=== PATIENT | female | born 1945 | race Caucasian/White ===

== ENCOUNTER 2020-12-02 11:27 | Outpatient (REF) | payer MEDICARE, SELFPAY ==
--- NOTE | ~2020-12-02 | US_ITS ---
EXAMINATION: US VENOUS ULTRASOUND WITH DOPPLER LOWER EXTREMITY, RIGHT CLINICAL INFORMATION: Swelling COMPARISON: Previous exam December 2019 TECHNIQUE: Ultrasound of the deep veins is performed from the hip to the calf with compression sonography and color and pulse Doppler assessment. Spectral analysis with color-flow imaging is performed. FINDINGS: There is normal venous compression and respiratory variation and augmented flow. The visualized common femoral vein, superficial femoral vein, profunda femoral vein, popliteal vein, and the trifurcation region shows no evidence of deep venous thrombosis. There is no significant popliteal fossa cyst. US/US venous duplex LE RT IMPRESSION: No DVT demonstrated in the right lower extremity.
== END 2020-12-02 11:28 | disposition home or self-care (01) ==
LOC: HO.HMGCX 11:27
PROVIDERS: Visit Provider Hospitalist
DX: R60.0 Localized edema (principal)
CPT/HCPCS: 93971

== ENCOUNTER 2023-02-22 10:03 | Outpatient (AMB) | payer MEDICARE, SELFPAY ==
--- NOTE | 2023-02-22 10:13 | MHC.PC.OV ---
Vital Signs 02/22/23 10:16 Height 4 ft 11 in Weight 142 lb BMI 28.7 BP 132/80 Blood Pressure Location Lt brachial Position Sitting Pulse 73 Pulse Source Pulse Oximeter Pulse Oximetry (%) 97 Oxygen Delivery Method Room Air Intake Visit Reasons: Abdominal pain Intake Note: Pt is here today as a New Patient to [facility] and c/o epigastric pain Allergies penicillin V Adverse Reaction (Unknown, Verified 02/22/23 10:50) Unknown amoxicillin Adverse Reaction (Verified 02/22/23 10:50) Eye Swelling Medication List - Last Reconciled 02/22/23 by Laura Gamboa MD alum-mag hydroxide-simeth 200-200-20 mg/5 mL (Antacid Liquid) 5 mL PO Q3H PRN atenolol 50 mg PO BID atorvastatin 20 mg PO DAILY bupropion HCl 200 mg PO QAM calcium citrate 200 mg PO DAILY docusate sodium (Stool Softener) 100 mg PO DAILY esomeprazole magnesium mg PO lactobacillus combination no.9 (Adult 50 Plus Probiotic) 4,000 mmu cells PO DAILY lorazepam 0.5 mg PO TID nifedipine ER 30 mg PO DAILY tizanidine 2 mg PO TID triamcinolone acetonide 0.025% appl topical valsartan 320 mg PO DAILY Tobacco use date assessed: 02/22/23 Fall risk assessment: 1 Fall in past year Last assessed Fall Risk: 02/22/23 Dental Screening Dental Screen Date: 02/22/23 Did you have a dental visit in the last 12 months?: No Was dental information given to patient?: Patient has dentist HPI HPI Comments History of Present Illness Details 78-year-old lady new to practice, here today complaining of sharp epigastric pain, nonradiating, accompanied by bloating and occasional nausea, which has been present now for the last several days. Denies any change in her bowel habits, blood in the stool, no black stools, denies any urinary symptoms. She has chronic GERD, currently on esomeprazole which does not help with above complaint PFSH Medical History (Updated 02/22/23 @ 11:24 by Laura Gamboa MD) Acute epigastric pain Chronic GERD Essential hypertension Generalized anxiety disorder Hyperlipidemia Impaired fasting glucose Migraine Surgical History (Updated 02/22/23 @ 11:26 by Laura Gamboa MD) Hx of cataract surgery Hx of section Social History Housing: House Patient Tobacco Use Status: Never used Tobacco e-Cigarette/Vaping Use: Never Used service: No Current occupational status: retired Cognitive needs: No Hearing needs: No Vision needs: No Questionnaire PHQ-9 Over the last 2 weeks, how often have you been bothered by any of the following problems? 1. Little interest or pleasure in doing things: not at all 2. Feeling down, depressed, or hopeless: not at all 3. Trouble falling or staying asleep, or sleeping too much: not at all 4. Feeling tired or having little energy: not at all 5. Poor appetite or overeating: not at all 6. Feeling bad about yourself - or that you are a failure or have let yourself or your family down: not at all 7. Trouble concentrating on things, such as reading the newspaper or watching television: not at all 8. Moving or speaking so slowly that other people could have noticed. Or the opposite - being so fidgety or restless that you have been moving around a lot more than usual: not at all 9. Thoughts that you would be better off or of hurting yourself in some way: not at all Total score: 0 Depression Screening Interpretation: Negative 21497 - PHQ-9 Billing: Yes Source: Developed by Drs. Sang Gilman, Grazyna Arellano, Ramesh Moura and colleagues, with an educational nhan from [employer]. Thrive Questionnaire Date Thrive assessed: 02/22/23 I am a: Patient What is your living situation today?: I have a steady place to live Within the past 12 months, did the food you bought not last and you didn't have the money to get more?: Never true Within the past 12 months, did you worry whether your food would run out before you got money to buy more?: Never true Do you have trouble paying for medicines?: No Do you have trouble getting transportation to medical appointments?: No Do you have trouble paying your heating and electricity bill?: No Do you have trouble taking care of your child, family member or friend?: No Do you have trouble with day-to-day activities such as bathing, preparing meals, shopping, managing finances, etc.?: No Are you currently unemployed and looking for a job?: No Are you interested in more education?: No AUDIT C Alcohol Use Questionnaire (AUDIT-C) 1. How often do you have a drink containing alcohol?: Never Total Score: 0 DEVON-7 AMB Questionnaire DEVON-7 Date DEVON - 7 assessed: 02/22/23 Feeling nervous, anxious, or on edge: 0 = Not at all Not being able to stop or control worryin = Not at all Worrying too much about different things: 0 = Not at all Trouble relaxin = Not at all Being so restless that it is hard to sit still: 0 = Not at all Becoming easily annoyed or irritable: 0 = Not at all Feeling afraid as if something awful might happen: 0 = Not at all Total DEVON-7 score (0-4 normal; 5-9 mild; 10-14 moderate; 15-21 severe): 0 Source: Developed by Drs. Sang Gilman, Grazyna Arellano, Ramesh Moura and colleagues, with an educational nhan from [employer]. DEVON-7 Assessment Billing DEVON-7 Assessment Tool: DEVON-7 Assessment 86647 Review of Systems Const Denies fatigue, Denies fever(s), Denies headache(s) and Denies weakness ENT Denies dizziness, Denies headache(s), Denies nasal congestion and Denies nasal discharge Card Denies chest pain, Denies lightheadedness, Denies palpitations and Denies dyspnea Resp Denies chest congestion, Denies cough, Denies dyspnea and Denies wheezing GI Reports as per HPI Denies hematuria, Denies urinary frequency, Denies dysuria and Denies urinary urgency Musc Reports no additional complaints Skin/Breast Denies lesions and Denies rash Neuro Denies dizziness, Denies headache(s) and Denies weakness Endo Denies fatigue, Denies polydipsia, Denies polyuria and Denies palpitations Simon/Lymph Reports no additional complaints Aller/Immun Denies seasonal rhinorrhea and Denies wheezing Physical exam (Primary Care) Vital Signs: Last Vital Signs Pulse 73 02/22/23 10:16 BP 132/80 02/22/23 10:16 Pulse Ox 97 02/22/23 10:16 Oxygen Delivery Method Room Air 09/01/23 10:16 BMI result Body Mass Index 28.7 Tobacco/Smoking Status: Tobacco use Status Tobacco use date assessed 02/22/23 02/22/23 10:35 Patient Tobacco Use Status Never used Tobacco 02/22/23 10:35 e-Cigarette/Vaping Use Never Used 02/22/23 10:35 PHQ-9: PHQ-9 Score PHQ-9: Total score 0 02/22/23 11:28 Depression Screening Interpretation: Negative Thrive Assessment: Date of Thrive Assessment Date Thrive assessed 02/22/23 02/22/23 10:35 Const Orientation/consciousness: patient oriented x3 HENMT Head: Yes normocephalic and Yes atraumatic Ears: external ears normal, TM's normal bilaterally and EAC's normal General nose exam: Normal external nose present Face and sinus: Yes face symmetric Mouth: Normal oral and palatal mucosa present, oropharynx normal and moist mucous membranes Eyes General: appearance normal, both eyes and all related structures Neck Neck: Yes full ROM, Yes no lymphadenopathy and Yes supple Thyroid: Thyroid normal Resp Effort & Inspection: normal respiratory effort and able to speak in complete sentences Auscultation: clear to auscultation bilaterally Cardio Rate: regular rate Rhythm: regular rhythm Heart sounds: S1 normal heart sound present and S2 normal heart sound present Bruits: no abdominal aortic bruits GI Palpation (GI): No Abdominal aortic bruit present, Soft to palpation and Tenderness to palpation present (GI) (Slight slight tenderness over epigastric area, no rebound or guarding) Aquino's sign negative Auscultation: normal bowel sounds General: Yes no CVA tenderness Back/Spine/Pelvis Back: no CVA tenderness and No back tenderness Skin General skin exam: no rashes or lesions noted Neuro General: patient oriented x3, moves all extremities, no focal motor deficits and CN's II-XI intact bilaterally Extrem General: Yes normal to inspection, Yes full ROM, Yes no joint enlargement, Yes no clubbing, cyanosis or edema, Yes no calf tenderness and Yes normal gait Psych Appearance: grossly normal and well kempt Mental Status: mental status grossly normal Speech and movement: Normal speech and movement present Affect: normal affect Attitude: cooperative Thought process: Normal thought process present Assessment and Plan Assessment & Plan (1) Acute epigastric pain: Code(s): R10.13 - Epigastric pain Plan: Ordered stat ultrasound of abdomen and of aorta, CBC with differential and comprehensive metabolic panel ordered. GI consult obtained (2) Chronic GERD: Code(s): K21.9 - Gastro-esophageal reflux disease without esophagitis Plan: Currently on esomeprazole (3) Essential hypertension: Comment: ff'd by Dr Feliz - [facility] cardiology Code(s): I10 - Essential (primary) hypertension Plan: Blood pressure at goal of less than 130/80. Continue with current medication. Reinforced importance of following a low sodium diet, getting regular exercise, and lowering stress levels. Orders: Orders US abdomen complete 02/22/23 R10.13 - Epigastric pain US aorta 02/22/23 R10.13 - Epigastric pain Complete Blood Count Auto Diff 02/22/23 K21.9 - Gastro-esophageal reflux disease without esophagitis, R10.13 - Epigastric pain Comprehensive Met. Panel 02/22/23 I10 - Essential (primary) hypertension, K21.9 - Gastro-esophageal reflux disease without esophagitis, R10.13 - Epigastric pain Referrals Gastroenterology Referral K21.9 - Gastro-esophageal reflux disease without esophagitis Coding Level of Care Code New Pt Level 3 (63366) Diagnoses Acute epigastric pain R10.13 Chronic GERD K21.9 Essential hypertension I10 Additional Codes DEVON-7 Assessment Billing - DEVON-7 Assessment Tool: DEVON-7 Assessment 97651 ([id number])
[2023-02-22 10:16] VITALS: BP 132/80; PULSE 73; O2SAT 97; BMI 28.7
== END 2023-02-22 12:09 | disposition home or self-care (01) ==
PROVIDERS: PCP Internal Medicine; Visit Provider Internal Medicine
DX: R10.13 Epigastric pain (principal); K21.9 Gastro-esophageal reflux disease without esophagitis; I10 Essential (primary) hypertension
CPT/HCPCS: 99203; 99213

== ENCOUNTER 2023-02-22 12:01 | Outpatient (REF) | payer MEDICARE, SELFPAY ==
--- NOTE | ~2023-02-22 | US_ITS ---
EXAMINATION: US ABDOMEN COMPLETE CLINICAL INFORMATION: Epigastric pain. COMPARISON: CT abdomen and pelvis from 01/11/2014 TECHNIQUE: Real-time imaging of the abdominal viscera. FINDINGS: PANCREAS: Normal. ABDOMINAL AORTA: The proximal, mid, and distal segments are normal in caliber. INFERIOR VENA CAVA: Visualized portions are normal. LIVER: Normal. The liver is normal in size. The liver contour is normal. Parenchymal echogenicity is normal. No focal hepatic lesion. There is no intrahepatic biliary duct dilatation seen. GALLBLADDER: Intraluminal gallbladder calculi without wall thickening or pericholecystic fluid. Sonographic Aquino sign is negative. COMMON BILE DUCT: Normal in caliber measuring 0.4 cm in diameter. RIGHT KIDNEY: Normal. No hydronephrosis. No renal calculi or focal parenchymal lesions. The kidney measures 9.0 cm in maximum dimension. LEFT KIDNEY: Normal. No hydronephrosis. No renal calculi or focal parenchymal lesions. The kidney measures 9.2 cm in maximum dimension. SPLEEN: Normal. The spleen measures 6.9 cm in maximum dimension. FREE FLUID: None. US/US abdomen complete IMPRESSION: Cholelithiasis without sonographic evidence of acute cholecystitis.
[2023-02-22 13:15] LABS: MANUAL DIFF FLAG NO
[2023-02-22 13:25] LABS: Basophils Percent Auto 0.4 % (0-2); Eosinophils Percent Auto 0.5 % (0-4); Hematocrit 40.1 % (37.0-47.0); Hemoglobin 13.2 g/dl (12.0-16.0); Imm Gran Abs Auto 0.03 X10*3/uL (0.00-0.03); Imm Gran Pct Auto 0.4 % (0.0-0.4); Lymphocytes Absolute Auto 2.3 X10*3/uL (1.2-4.9); Mean Corpuscular HGB Conc 32.9 g/dl (31.0-35.0); Mean Corpuscular Hemoglobin 31.1 pg (27.0-33.0); Mean Corpuscular Volume 94.4 fL (80.0-98.0); Mean Platelet Volume 9.7 fL (9.4-12.3); Monocytes Absolute Auto 0.6 X10*3/uL (0.1-1.2); Monocytes Percent Auto 7.8 % (2-11); Neutrophils Absolute Auto 5.1 x10*3/uL (2.0-8.3); Neutrophils Percent Auto 62.9 % (45-73); Platelet Count 244 X10*3/uL (160-400); Red Blood Count 4.25 X10*6/uL (4.20-5.50); Red Cell Distribution Width 12.8 % (11.0-16.0)
[2023-02-22 13:55] LABS: Alanine Aminotransferase 11 U/L (0-31); Albumin Level 4.2 g/dL (3.5-5.0); Alkaline Phosphatase 84 U/L (39-117); Anion Gap 18 (12-20); Aspartate Amino Transferase 15 U/L (5-31); Bilirubin Total 0.4 mg/dL (0.0-1.0); Blood Urea Nitrogen 13 mg/dL (9-16); Calcium 9.9 mg/dL (8.4-10.2); Carbon Dioxide 22 mmol/L (22-29); Chloride 100 mmol/L (96-108); Estimated Glomerular Filt Rate > 60; Glucose Random 149 mg/dL (60-115); Potassium 4.6 mmol/L (3.3-5.1); Sodium 135 mmol/L (135-145); Total Protein 7.3 g/dL (6.5-8.0)
== END 2023-02-22 12:02 | disposition home or self-care (01) ==
LOC: HO.US 12:01
PROVIDERS: PCP Internal Medicine; Visit Provider Internal Medicine
DX: R10.13 Epigastric pain (principal); K21.9 Gastro-esophageal reflux disease without esophagitis; I10 Essential (primary) hypertension
CPT/HCPCS: 36415; 76700; 80053; 85025

== ENCOUNTER 2023-08-30 13:30 | Outpatient (REF) | payer MEDICARE, SELFPAY | END 2023-08-30 13:31 | disposition home or self-care (01) | LOC: HO.HMGCLNP 13:30 | PROVIDERS: PCP Internal Medicine; Visit Provider Internal Medicine | DX: R19.5 Other fecal abnormalities (principal) | CPT/HCPCS: 87177; 87209 ==

== ENCOUNTER 2025-01-15 15:32 | Outpatient (AMB) | payer MEDICARE, SELFPAY ==
--- OUTSIDE RECORDS SUMMARY | 2025-01-15 15:34 | XMS_ITS | Clinical Summary ---
Author Organization Formerly [facility] Address [address] [place] [address] Care Team Providers Care Entertainment Centre Manager Name Role Phone Unavailable Primary Care Provider Unavailabl e Immunizations Immunization Administration Dates Next Due Covid-19 MRNA Vaccine - Pfizer 12+ (Purple Cap) 08/02/2020,07/12/2020 Social History Tobacco Use Types Packs/Day Years Used Date Smoking Tobacco: Never Assessed Comments Unknown Sex and Gender Information Value Date Recorded Sex Assigned at Not on file Legal Sex Female 6:08 PM EST Gender Identity Not on file Sexual Orientation Not on file Plan of Treatment Health Maintenance Due Date Last Done Comments DTaP/Tdap/Td Vaccines (1 - Tdap) 01/18/1963 Pneumococcal Vaccines 50+ (1 of 1 - PCV) 01/18/1994 Zoster (Shingles) Vaccine (1 of 2) 01/18/1994 DXA Bone Density (Females,Ages 65 and older) 01/18/2009 RSV Vaccine 60 years and older and Patients (1 - 1-dose 75+ series) 01/18/2019 COVID-19 Vaccine (3 - 2023-2 5 season) 2024 08/02/2020, 07/12/2020 Influenza Vaccine 01/22/2025 03/30/2020, 03/05/2019, 02/27/2018 Hepatitis B Vaccines Aged Out No long er eligible based on patient's age to complete this topic Insurance MEDICARE PART A & B
--- OUTSIDE RECORDS SUMMARY | 2025-01-15 15:34 | XMS_ITS | Patient Health Record ---
Author Organization [facility] Address [address] [place] [address] Care Team Providers Care Clock Repair Technician Name Role Phone Sarah(inactive) Alex BRYANT Primary Care Provider U Sang Blake [phone] Allergies Allergen (clinical drug ingredient) Drug/Non Drug Allergy documented on EMR Reaction Allergy Type Onset Date Status lansoprazole Prevacid Unknown Drug Allergy Acti ve Reason For Referral No Information Medications Medication SIG (Take, Route, Frequency, Duration) Notes Start Date End Date Status hydroCHLOROthiazide 25mg Active Klor-Con 10 10meq Ac tive Simvastatin 40mg Act fiorella LORazepam 0.5mg Acti ve NexIUM 40mg 06/24/2024 06/24/2024 Active Diovan 320mg Active buPROPion HCl ER (SR) 150mg Active MoviPrep 100 GM as directed Orally O ne time only for 1 dose 10/30/2011 Active dilTIAZem HCl 180mg Active Problems Problem Type SNOMED Code ICD Code Onset Dates Problem Status W/U Status Risk Notes Problem Esophageal reflux (863768681) Esophageal reflux (530.81) Active confirmed Problem Right upper quadrant pain (406382117) Abdominal pain, right upper quadrant (789.01) Active confirmed Problem History of polyp of colon (situation) (665537699) Personal history of colonic polyps (V12.72) Active confirmed Problem Screening for malignant neoplasm of colon (930668243) Special screening for malignant neoplasms, colon (V76.51) Active confirmed Plan Of Treatment Future Test Test Name Order Date COLONOSCOPY 10/30/2011 Insurance Providers Payer Name Payer Address Payer Phone Subscriber Number Group Number Insured Name Patient Relationship to Insured Coverage Start Date Coverage End Date MEDICARE OF [place] [address] [place] [address] [phone] [id number] VIDADAVID Self - patient is the insured MEDEX ATTN CLAIMS [address] [place] [address] [phone] [id number] DAVID MCPHERSON Self - patient is the insured Medical (General) History Medical History History ICD Code GERD Colon polyps HTN Hyperlipidemia Depression Denies PR,DM,CVA,Lung disease,renal dise ase Surgical History Surgery Date(Month/Year)
--- OUTSIDE RECORDS SUMMARY | 2025-01-15 15:34 | XMS_ITS | Clinical Summary ---
Author Organization [facility] Address [address] [place] [address] Care Team Providers Care Insurance Plan Specialist Name Role Phone JoyceAnnath Leigh IBRAHIM Primary Care Provider [phone] Allergies Active Allergy Reactions Criticality Noted Date Comments Azithromycin Other (See Comments) Medium 09/25/2019 Medications Medication Sig Dispensed Refills Start Date End Date Status buPROPion (WELLBUTRIN SR) 200 MG 12 hr tablet Take 200 mg by mouth. 0 Active [facility] VITAMIN B12 1000 MCG tablet TAKE 1 TABLET DAILY ORALLY 90 DAYS 1 08/23/2017 Active tiZANidine (ZANAFLEX) 2 MG tablet Take 2 mg by mouth. 0 01/09/2017 Active LORazepam (ATIVAN) 0.5 MG tablet Take 0.5 mg by mouth. 0 Active erythromycin (ROMYCIN) ophthalmic ointment Apply to eye. 0 Active Dextran 70-Hypromellose (ARTIFICIAL TEARS) 0.1-0.3 % SOLN 1 drop. 0 11/22/2017 Active Flaxseed, Linseed, (FLAX SEED OIL PO) Take by mouth 2 (two) times a day. 0 Active Calcium Carbonate-Vitamin D (CALTRATE 600+D PO) Take by mouth. 0 A ctive ibuprofen (ADVIL,MOTRIN) 400 MG tablet TAKE 1 TABLET BY MOUTH THREE TIMES A DAY WITH FOOD OR MILK NEEDED 0 02/13/2019 Active NEXIUM 40 MG capsule Take 1 capsule (40 mg total) by mouth 2 (two) times a day. 180 capsule 3 05/02/2020 Active atorvastatin (LIPITOR) tablet 20 mg Take 1 tablet (20 mg total) by mouth daily. 90 tablet 3 05/02/2020 Active NIFEdipine ER (ADALAT CC) 30 MG 24 hr tablet Take 1 tablet (30 mg total) by mouth daily. 90 tablet 3 05/02/2020 Active atenolol (TENORMIN) tablet 50 mg Take 1 tablet (50 mg total) by mouth 2 (two) times a day. 180 tablet 2 05/02/2020 Active metoclopramide (REGLAN) tablet 10 mgIndications:Gastro esophageal reflux disease Take 1 tablet (10 mg total) by mouth daily. 30 tablet 1 05/02/2020 Active ciclopirox (LOPROX) 0.77 % cream APPLY TO AFFECTED AREA TWICE A DAY 0 03/28/2020 Active DIOVAN 320 MG tabletIndications:Es sential hypertension Take 1 tablet (320 mg total) by mouth daily. 90 tablet 3 08/08/2020 Active losartan (COZAAR) 100 MG tablet Take 1 tablet (100 mg total) by mouth daily. 90 tablet 1 08/08/2020 Active mupirocin (BACTROBAN) 2 % ointment APPLY TO AFFECTED AREA 3 TIMES A DAY 22 g 1 12/16/2020 Active Active Problems Problem Noted Date Diagnosed Date Chronic kidney disease 07/17/2019 Hyponatremia 07/17/2019 Pure hypercholesterolemia 06/05/2018 IFG (impaired fasting glucose) 04/15/2018 SI (sacroiliac) joint dysfunction 02/11/2018 Anxiety GERD (gastroesophageal reflux disease) Hypertension Immunizations Name Administration Dates Next Due Influenza Trivalent (Fluzone High Dose) 0.7 mL (65yrs &>) 03/30/2020,03/05/2019,02/27/2018 Pneumococcal Conjugate PCV13 02/27/2018 Family History Relation Name Status Comments Maternal Grandfather Maternal Grandmother Paternal Grandfather Paternal Grandmother Social History Tobacco Use Types Packs/Day Years Used Date Smoking Tobacco: Never Smokeless Tobacco: Never Alcohol Use Standard Drinks/Week Comments No 0 (1 standard drink = 0.6 oz pur e alcohol) Sex and Gender Information Value Date Recorded Sex Assigned at Female 07/01/2018 11:31 AM EST Gender Identity Female 07/01/2018 11:31 AM EST Sexual Orientation Straight 07/01/2018 11 :31 AM EST Last Filed Vital Signs Vital Sign Reading Time Taken Comments Blood Pressure 144/80 05/31/2020 2:24 PM EST Pulse 73 05/31/2020 2:24 PM EST Temperature 35.9 C (96.6 F) 05/31/2020 2:24 PM EST Respiratory Rate 14 05/31/2020 2:24 PM EST Oxygen Saturation 97% 05/31/2020 2:24 PM EST Inhaled Oxygen Concentration - - Weight 65.2 kg (143 lb 11.2 oz) 05/31/2020 2:24 PM EST Height 144.8 cm (4' 9 ) 05/31/2020 2:24 PM EST Body Mass Index 31.1 05/31/2020 2:24 PM EST Plan of Treatment Health Maintenance Due Date Last Done Comments COVID-19 Vaccine (#1) 1945 Shingrix-Zoster Vaccine (2 of 2) 09/19/2014 07/25/2014 RSV Adult > 60+ Yrs or (1 - 1-dose 75+ series) 01/18/2019 Pneumococcal Vaccine (2 of 2 - PPSV23 or PCV20) 02/27/2019 02/27/2018 Depression Screening 06/11/2020 06/11/2019, 06/11/2019, 06/11/2019, Additional history exists Fall Risk Assessment 06/11/2020 06/11/2019, 06/11/2019, 06/11/2019, Additional history exists Preventative Health Evaluation 06/11/2020 06/11/2019, 06/11/2019, 02/27/2018 BMI Counseling 05/31/2021 05/31/2020, 06/2019, 03/30/2020, Additional history exists Osteoporosis Screening (DEXA Scan) 06/11/2021 06/11/2019, 01/06/2016 (Pt Reported - Need documentation) DTap / Tdap / Td (2 - Td or Tdap) 07/25/2022 07/25/2012 Influenza Vaccine (#1) 2025 0, 03/30/2020, 03/05/2019, Additional history exists Hepatitis B Vaccines Aged Out No long er eligible based on patient's age to complete this topic RSV Ped < 20 months Aged Out No longe r eligible based on patient's age to complete this topic Care Teams Insurance Plan Specialist Relationship Specialty Start Date End Date Rhona Cook DO PCP - General Family Medicine 02/27/18
--- OUTSIDE RECORDS SUMMARY | 2025-01-15 15:34 | XMS_ITS | Data Portability ---
Author Organization 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 Pt able to complete increased volume of exercises before reporting fatigue. Good mechanics demonstrated 6in step ups using single arm support. Plan: PT 2x/week for 6 weeks for R LE stretching & strengthening, gait & balance training. Not available 11/25/2024 13:46:59 11/30/2024 11/30/2024 Assessment: Pt wanted to defer ankle weights today due to increased LE soreness after fall on Saturday. Held off on some of exercises for same reason. Pt was fatigued after session but did not feel marked exacerbation of symptoms with exercises without resistance. Plan: PT 2x/week for 6 weeks for R LE stretching & strengthening, gait & balance training. [email or web address] Not available 11/30/2024 13:51:22 12/02/2024 12/02/2024 Assessment: resumed standing exercise with light resistance. Pt challenged but able to complete. Introduced to 4in step up and over. Pt able to complete with single arm support. Plan: PT 2x/week for 6 weeks for R LE stretching & strengthening, gait & balance training. [email or web address] Not available 12/02/2024 15:37:25 12/07/2024 12/07/2024 Assessment: Progressed to 6in step. Pt able to ascend and descend with single arm support. Challenged with adduction bridges but able to complete with no adverse effects. Plan: PT 2x/week for 6 weeks for R LE stretching & strengthening, gait & balance training. [email or web address] Not available 12/07/2024 13:46:01 12/16/2024 12/16/2024 Assessment: Moderately fatigued with increased volume for SLR's. Resumed standing hip strengthening. Pt able to complete with no adverse effects. Reviewed and updated HEP. Plan: DC to HEP. [email or web address] Not available 12/16/2024 17:24:39 Plan of Treatment Reminders Order Date Submit Date Provider Last Modified By Organization Details Last Modified Time Details Appointments None record ed. Lab None record ed. Referral None record ed. Procedures None record ed. Surgeries None record ed. Imaging None record ed. Medication Orders None record ed. Patient TargetsNo targets recorded. Patient InstructionsNo instructions recorded. Reason for Referral None Reported. Problems Name Problem SNOMED Code Status Onset Date Resolution Date Notes Provider Name and Address Organization Details Recorded Time Osteoarthr itis of left hip joint 8006091383306 08 Active 2023 juan diego cooley [place] - 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 4 09:18:46 Carpal tunnel syndrome of right wrist 8284215990834 08 Active 2023 PEGGY cooley [place] [facility] 4 12:01:33 Pain of left wrist 6540092797503 02 Active 2023 Mariangel Marte PA-C [address], [place], [address] , [facility] 4 08:34:23 Osteoarthr itis of right knee joint 3005497726282 00 Active 2024 MEME cooley, [facility] 11:51:19 Osteoarthr itis of right hip joint 1301713511258 07 Active 2024 Sudhir Medrano MD [address], [place], [address] , [facility] 12:25:39 Pain of knee region 1795468953 Active 2024 Paige cooley, [facility] 14:29:50 Problem Notes None recorded. Procedures Surgical History Date Name Laterality Status Provider Name and Address Organization Details Recorded Time 12/17/19 68550 Therapeutic Exercise (1:1) completed yTra Patiño, TIRE SERVICER [address], [place], [address], [facility] 12/16/2024 12:34:03 12/08/19 99873 Therapeutic Exercise (1:1) completed Tyra Patiño, TIRE SERVICER [address], [place], [address], [facility] 12/07/2024 12:53:44 12/03/19 37629 Therapeutic Exercise (1:1) completed Tyra Patiño, TIRE SERVICER [address], [place], [address], [facility] 12/02/2024 12:35:13 12/01/19 43755 Therapeutic Exercise (1:1) completed Mackenzie Natarajan, PT [address], [place], [address], [facility] 11/30/2024 13:51:33 11/26/19 23523: Therapeutic Activities (1:1) completed Tyra Patiño, TIRE SERVICER [address], [place], [address], [facility] 11/25/2024 13:02:13 11/26/19 99529 Therapeutic Exercise (1:1) completed Tyra Patiño, TIRE SERVICER [address], [place], [address], [facility] 11/25/2024 13:45:55 11/11/19 72510: Therapeutic Activities (1:1) completed Tyra Patiño, TIRE SERVICER [address], [place], [address], [facility] 11/10/2024 12:54:58 11/11/19 91142 Therapeutic Exercise (1:1) completed Tyra Patiño, TIRE SERVICER [address], [place], [address], [facility] 11/10/2024 12:54:58 11/05/19 27458: Therapeutic Activities (1:1) completed Mackenzie Natarajan, PT [address], [place], [address], [facility] 11/04/2024 08:27:46 11/05/19 84240 Therapeutic Exercise (1:1) completed Mackenzie Natarajan, PT [address], [place], [address], [facility] 11/04/2024 08:27:46 10/28/19 66461: Therapeutic Activities (1:1) completed Tyra Patiño, TIRE SERVICER [address], [place], [address], [facility] 10/27/2024 13:35:47 10/28/19 06285 Therapeutic Exercise (1:1) completed Tyra Patiño, TIRE SERVICER [address], [place], [address], [facility] 10/27/2024 13:35:47 10/15/19 74569: Therapeutic Activities (1:1) completed Mackenzie Natarajan, PT [address], [place], [address], [facility] 10/13/2024 11:32:06 10/15/19 35252 Therapeutic Exercise (1:1) completed Mackenzie Natarajan, PT [address], [place], [address], [facility] 10/13/2024 11:32:06 10/13/19 01495: Therapeutic Activities (1:1) completed Tyra Patiño, TIRE SERVICER [address], [place], [address], [facility] 10/12/2024 11:35:17 10/13/19 62246 Therapeutic Exercise (1:1) completed Tyra Patiño, TIRE SERVICER [address], [place], [address], [facility] 10/12/2024 11:35:17 10/07/19 58550: Therapeutic Activities (1:1) completed Mackenzie Natarajan, PT [address], [place], [address], [facility] 10/06/2024 08:38:57 10/07/19 23446 Therapeutic Exercise (1:1) completed Mackenzie Natarajan, PT [address], [place], [address], [facility] 10/07/2024 08:42:33 10/02/19 19260: Therapeutic Activities (1:1) completed Tyra Patiño, TIRE SERVICER [address], [place], [address], [facility] 10/01/2024 14:04:23 10/02/19 87683 Therapeutic Exercise (1:1) completed Tyra Patiño, TIRE SERVICER [address], [place], [address], [facility] 10/01/2024 14:04:23 09/30/19 86764: Therapeutic Activities (1:1) completed Tyra Patiño, TIRE SERVICER [address], [place], [address], [facility] 09/29/2024 14:51:31 09/30/19 19880 Therapeutic Exercise (1:1) completed Tyra Flynnf, TIRE SERVICER [address], [place], [address], [facility] 09/29/2024 14:08:22 09/24/19 94960: Therapeutic Activities (1:1) completed Tyra Patiño, TIRE SERVICER [address], [place], [address], [facility] 09/23/2024 13:56:03 09/24/19 15980 Therapeutic Exercise (1:1) completed Tyra Patiño, TIRE SERVICER [address], [place], [address], [facility] 09/23/2024 13:05:18 09/22/19 85072: Therapeutic Activities (1:1) completed Mackenzie Natarajan, PT [address], [place], [address], [facility] 09/21/2024 15:57:30 09/22/19 29134 Therapeutic Exercise (1:1) completed Mackenzie Natarajan, PT [address], [place], [address], [facility] 09/21/2024 15:03:00 09/17/19 61512: Therapeutic Activities (1:1) completed Tyra Patiño, TIRE SERVICER [address], [place], [address], [facility] 09/16/2024 13:54:18 09/17/19 77839 Therapeutic Exercise (1:1) completed Tyra Patiño, TIRE SERVICER [address], [place], [address], [facility] 09/16/2024 13:08:40 09/10/19 66033 Therapeutic Exercise (1:1) completed Mackenzie Natarajan, PT [address], [place], [address], [facility] 09/09/2024 12:48:38 09/08/19 25 83504 Therapeutic Exercise (1:1) completed Mackenzie Natarajan, PT [address], [place], [address], [facility] 09/07/2024 14:10:00 09/03/19 25 10839: Moderate complexity PT eval completed Mackenzie Natarajan, PT [address], [place], [address], [facility] 09/04/2024 08:51:39 09/03/19 25 G8417 BMI Above Upper Parameters, F/U Documented completed Mackenzie Natarajan, PT [address], [place], [address], [facility] 09/04/2024 08:51:43 09/03/19 25 G8427 Current Medication Documented completed Makcenzie Natarajan, PT [address], [place], [address], [facility] 09/04/2024 08:51:58 11/27/19 24 05274 Therapeutic Exercise (1:1) completed Tyra Patiño, TIRE SERVICER [address], [place], [address], [facility] 11/27/2023 15:18:59 11/20/19 24 37622 Therapeutic Exercise (1:1) completed Tyra Patiño, TIRE SERVICER [address], [place], [address], [facility] 11/20/2023 13:09:21 11/12/19 24 03471 Therapeutic Exercise (1:1) completed Tyra Patiño, TIRE SERVICER [address], [place], [address], [facility] 11/12/2023 15:03:56 11/05/19 24 63582 Therapeutic Exercise (1:1) completed Tyra Patiño, TIRE SERVICER [address], [place], [address], [facility] 11/05/2023 14:05:58 10/31/19 48466 Therapeutic Exercise (1:1) completed Tyra Patiño, TIRE SERVICER [address], [place], [address], [facility] 10/31/2023 13:11:10 10/23/19 64314 Therapeutic Exercise (1:1) completed Tyra Patiño, TIRE SERVICER [address], [place], [address], [facility] 10/23/2023 13:40:10 10/16/19 91510 Therapeutic Exercise (1:1) completed Mackenzie Natarajan, PT [address], [place], [address], [facility] 10/16/2023 12:20:39 10/14/19 95632 Therapeutic Exercise (1:1) completed Tyra Patiño, TIRE SERVICER [address], [place], [address], [facility] 10/14/2023 10:50:57 10/09/19 65004 Therapeutic Exercise (1:1) completed Mackenzie Natarajan, PT [address], [place], [address], [facility] 10/08/2023 23:54:57 10/07/19 38334 Therapeutic Exercise (1:1) completed Mackenzie Natarajan PT [address], [place], [address], [facility] 10/03/2023 23:52:20 10/02/19 11116 Therapeutic Exercise (1:1) completed Mackenzie Natarajan, PT [address], [place], [address], [facility] 10/01/2023 21:35:41 09/30/19 64642 Therapeutic Exercise (1:1) completed Tyra Patiño, TIRE SERVICER [address], [place], [address], [facility] 09/30/2023 13:02:36 09/23/19 24 52699 Therapeutic Exercise (1:1) completed Mackenzie Natarajan, PT [address], [place], [address], [facility] 09/23/2023 22:10:37 09/23/19 24 74084: Moderate complexity PT eval completed Mackenzie Natarajan, PT [address], [place], [address], [facility] 09/23/2023 22:10:28 09/23/19 24 G8417 BMI Above Upper Parameters, F/U Documented completed Mackenzie Natarajan, PT [address], [place], [address], [facility] 09/23/2023 22:10:55 09/23/19 24 G8427 Current Medication Documented completed Mackenzie Natarajan, PT [address], [place], [address], [facility] 09/23/2023 22:11:01 Arthroplasty completed Sudhir Medrano MD [address], [place], [address], [facility] 10/13/2024 14:07:02 Imaging Results None recorded. Procedure Notes None recorded. Medical Equipment None Reported. Allergies Allergen ID Allergen Name Allergen Category Reaction Reaction Severity Criticality Documentation Date Start Date Code Code System Note Provider Name and Address Organization Details Recorded Time 572676 Augmentin medicatio n Not available Not available Not available 08/26/20232019 75015 2 RxNorm Not Available [facility] 4 16:01:12 500284 amoxicill in medicatio n Not available Not available Not available 09/27/2023 723 RxNorm PIERCE cooley [facility] 4 14:43:48 806038 Benadryl medicatio n Not available Not available Not available 03/07/202403741 7 RxNorm PEGGY cooley [facility] 4 09:18:05 Medications Name Sig Start Date Stop Date Status Note LastModified by Organization Details LastModified Time buspirone 5 mg tablet TAKE 1 TABLET BY MOUTH EVERY DAY 03/07 completed Not Available Not Available Not Available atorvastati n 20 mg tablet TAKE 1 TABLET DAILY active Not Available Not Available No t Available tizanidine 2 mg tablet TAKE 1 TABLET BY MOUTH EVERY 8 HOURS NEEDED active Not Available Not Available No t Available clindamycin HCl 300 mg capsule TAKE 2 CAPSULES BY MOUTH 1 HOUR PRIOR TO DENTAL APPOINTME NT. active Not Available Not Available No t Available azithromyci n 250 mg tablet 03/07 completed Not Available Not Available Not Available cephalexin 250 mg capsule TAKE 1 CAPSULE IN THE MORNING AND 1 CAPSULE IN THE EVENING AND 1 CAPS BEFORE BEDTIME. 10/24 completed Not Available Not Available Not Available ondansetron HCl 4 mg tablet TAKE 1 TABLET BY MOUTH EVERY 8 HOURS NEEDED FOR NAUSEA AND VOMITING 10/24 completed Not Available Not Available Not Available Nexium 40 mg capsule,del ayed release TAKE 1 CAPSULE TWICE DAILY active Not Available Not Available No t Available nifedipine ER 30 mg tablet,exte nded release 10/07 completed Not Available Not Available Not Available Diovan 320 mg tablet TAKE 1 TABLET DAILY active Not Available Not Available No t Available lorazepam 0.5 mg tablet TAKE 1 TABLET BY MOUTH THREE TIMES A DAY active Not Available Not Available No t Available metoclopram shayne 5 mg tablet TAKE 1 TABLET NEEDED FOR CHEST PAIN ORALLY DAILY 30 DAY(S) active Not Available Not Available No t Available nifedipine ER 60 mg tablet,exte nded release 24 hr TAKE 2 TABLETS BY MOUTH EVERY DAY active Not Available Not Available No t Available erythromyci n 5 mg/gram (0.5 %) eye ointment ADMINISTE R SMALL AMOUNT INTO BOTH EYES ONCE A DAY AT NIGHT. active Not Available Not Available No t Available mupirocin 2 % topical ointment APPLY TOPICALLY DAILY active Not Available Not Available No t Available atenolol 50 mg tablet TAKE 1 TABLET TWICE A DAY active Not Available Not Available No t Available oxycodone 5 mg tablet TAKE 1 TABLET BY MOUTH EVERY 4 HOURS NEEDED 10/13 completed Not Available Not Available Not Available bupropion HCl SR 200 mg tablet,12 hr sustained-r elease TAKE 1 TABLET BY MOUTH EVERY DAY active Not Available Not Available No t Available ciclopirox 0.77 % topical cream APPLY TO AFFECTED AREA TWICE A DAY 28 DAYS active Not Available Not Available No t Available metoclopram shayne HCl Metoclopr amide HCl 10MG Tablet 12/10 completed Statu s: 'Disc ontin ued'; Not Available Not Available Not Available BinaxNOW COVID-19 Ag Self Test kit TEST DIRECTED 10/24 completed Not Available Not Available Not Available Vitals None Recorded Social History Question Answer Notes LastModified by Organizat ion Details LastModified Time Tobacco Smoking Status Never Smoker Sudhir Medrano MD [address], [place], [address], [facility] 10/13/2024 14:07:02 When Did You Quit Smoking? 16+yearssinc elastcigaret te [email or web address] Information not available 10/13/2024 What Is Your Relationship Status? [email or web address] Information not available 10/13/2024 How Many Years Have You Smoked Tobacco? 0 [email or web address] Information not available 10/13/2024 Sex: Unknown Functional Status Question Answer Note LastModified by Organizat ion Details LastModified Time How many times per week do you consume alcohol? Less than 1 time per week [email or web address] Information not available 10/13/2024 Do you use any illicit or recreational drugs? No [email or web address] Information not available 10/13/2024 Do you or have you ever used any other forms of tobacco or nicotine? No [email or web address] Information not available 10/13/2024 Do you or have you ever used e-cigarettes or vape? Never used electronic cigarettes [email or web address] Information not available 10/13/2024 Mental Status None recorded. Family History Nothing Reported. Medical History No medical history recorded. Gynecological HistoryNo gynecological history recorded. Obstetrics History GPAL:G 0 P 0 0 0 0 Past Encounters Encounter ID Performer Location Encounter Start Date Encounter Closed Date Diagnosis/Indication Diagnosis SNOMED-CT Code Diagnosis ICD10 Code Diagnosis Note [id number] Mackenzie Delgado, PT [facility] on [address] [place] [address] 09/23/2023 12:03:34 09/23/2023 12:59:42 Aftercare 302336586 Z47.1 History of total replacement of left hip joint 7717429603 442277 Z96.445 [id number] MD Dharmesh Tan 2[address] floor [address] [place] [address] 09/27/2023 14:33:36 10/17/2023 14:52:37 History of total replacement of left hip joint 0431833414 992888 Z96.642 left total hip replacemt 09/11/23 mattress for [facility] bed [id number] Tyra Patiño, [facility] on [address] [place] [address] 09/30/2023 12:27:09 09/30/2023 14:40:56 Aftercare 069882279 Z47.1 History of total replacement of left hip joint 1142631052 744742 Z96.995 [id number] Mackenzie Natarajan, PT [facility] on [address] [place] [address] 10/02/2023 11:08:05 10/02/2023 12:33:39 Aftercare 549048645 Z47.1 History of total replacement of left hip joint 7292111636 634615 Z96.260 [id number] Mack[facility]atarajan[facility] [address] [place] [address] 10/07/2023 11:02:55 10/07/2023 12:08:46 Aftercare 859770348 Z47.1 History of total replacement of left hip joint 9993443580 585500 Z96.014 [id number] Mackenzie Natarajan, PT [facility] [address] [place] [address] 10/09/2023 12:02:50 10/09/2023 13:22:00 Aftercare [id number] Z47.1 History of total replacement of left hip joint 2493405294 668584 Z96.783 [id number] Tyra Patiño, [facility] on PT [address] [place] [address] 10/14/2023 11:32:13 10/14/2023 14:59:15 Aftercare 504553709 Z47.1 History of total replacement of left hip joint 6092754012 350352 Z96.580 [id number] Mackenzie Natarajan, [facility] on [address] [place] [address] 10/16/2023 11:35:58 10/16/2023 12:44:53 Aftercare 071922843 Z47.1 History of total replacement of left hip joint 4256337385 143142 Z96.685 [id number] Tyra Patiño [facility] on PT [address] [place] [address] 10/23/2023 13:01:10 10/23/2023 14:07:40 Aftercare [id number] Z47.1 History of total replacement of left hip joint 5032827037 960147 Z96.488 [id number] [facility] 2[facility] [address] [facility] [facility] [address] 10/25/2023 13:58:19 11/15/2023 13:12:18 History of total replacement of left hip joint 2817446965 422879 Z96.642 left total hip replacemt 09/11/23 mattress for [facility] bed [id number] Tyra Patiño PTA [facility] on [address] [place] [address] 10/31/2023 13:10:22 10/31/2023 15:30:42 Aftercare 680082415 Z47.1 History of total replacement of left hip joint 3969590992 988020 Z96.652 [id number] Tyra Patiño PTA [facility] on [address] [place] [address] 11/05/2023 14:01:07 11/05/2023 15:30:30 Aftercare [id number] Z47.1 History of total replacement of left hip joint 3108020421 224821 Z96.413 [id number] Tyra Ptaiño PTA [facility] on [address] [place] [address] 11/12/2023 15:03:11 11/13/2023 07:46:56 Aftercare [id number] Z47.1 History of total replacement of left hip joint 7616509811 596130 Z96.435 [id number] [facility] [address] [place] [address] 11/20/2023 13:08:12 11/20/2023 17:45:15 Aftercare [id number] Z47.1 History of total replacement of left hip joint 6406281698 551268 Z96.465 [id number] [facility]ra [facility] [address] [place] [address] 11/27/2023 15:39:40 11/27/2023 16:32:09 Aftercare [id number] Z47.1 History of total replacement of left hip joint [id number] 249732 Z96.165 [id number] Mohan Ortiz MD [facility] 1st Floor [address] [place] [address] 03/07/2024 08:57:23 03/30/2024 09:15:23 Pain of bilateral hands [id number] M79.641 M79.642 Carpal cherise shyla syndrome of right wrist [id number] 47135 G56.01 Bilateral carpal tunnel syndrome [id number] G56.03 [id number] Mohan Ortiz MD [address] [place] [address] 03/27/2024 10:05:04 04/14/2024 12:49:39 Bilateral carpal tunnel syndrome [id number] G56.03 [id number] Ruma Dean, OTR/L,CHT [facility] 1st [facility] [address] [place] [address] 05/19/2024 15:01:22 05/19/2024 15:35:57 Postoperative visit [id number] Z48.89 Sutures are removed today without complicati on.Scar massage was demonstrat ed including a variety of movements to disperse the fibrotic tissue which, if untouched, would create a thickened area of scar. This is instructed with a handout given to the patient. Additional home exercises including tendon gliding and median nerve gliding were demonstrat ed in the office today with a handout also provided. A small amount of therapy putty was introduced and demonstrat ed with the correspond ing worksheet was provided as well. Further discussion about the MELT technique using a small ball for pillar pain with prerna chavez was provided. Per the surgeon , since there are no wound care complicati ons or concerns, no follow up appointmen t needed. The patient has been educated with a significan t Home Exercise Program to be completed over the next 2 weeks. The patient was instructed to contact the office if there should arise any concerns with the surgical site or if there is not sufficient functional recovery. All questions, with regards to return to functional activities , are answered prior to leaving the office today. This office visit was complete at 30 minutes. Carpal cherise shyla syndrome of left wrist [id number] 55018 G56.02 Upon welcoming the patient from the waiting room into the clinic, I am able to observe how the involved extremity is used functional ly. The patient demonstrat es light use of the surgical hand for such activities as gathering personal items, and adjusting the chair. The patient shared their personal experience over the last 2 weeks living with a postoperat fiorella hand and modifying activities around the house. The postoperat fiorella dressing is removed. The surgical wound is inspected and found to be clean and dry. The edges of the incision are approximat ed with intact sutures. Patient has intact neurovascu lar structures with only slight tenderness at the incision. No surroundin g erythema, wound drainage, warmth or signs of infection. The patient states no pain when palpating around the surgical site and the surroundin g structures . The digits on the involved hand are able to demonstrat e a nearly full composite fist. Thumb is able to flex and oppose towards the small finger. Digits are able to demonstrat e full extension/ hyperexten ifrah to open and flatten the palm. The wrist has nearly full flexion /extension /circumduc tion range of motion. The patient is able to demonstrat e both tip, tripod, and lateral pinch. The thenar muscle shows atrophy. Strength of the first dorsal interossei /adductor is 3/5. The distal sensation for light touch is assessed. The patient is able to demonstrat e a positive response to light touch. The patient reports difficulti es with fine sensation as related to dexterity tasks with the thumb, index, middle fingers. 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 [address] 09/02/2024 12:00:19 09/02/2024 13:15:05 Pain of right knee joint [id number] 06281 M25.681 [id number] MD [facility] 2nd floor [address] [place] [address] 09/01/2024 11:33:20 09/16/2024 13:50:51 History of repair of hip joint [id number] Z96.642 Osteoarthr itis of right knee joint 1088708135 46603 M17.11 Osteoarthr itis of right hip joint 8141503797 89090 M16.11 [id number] Mackenzie Natarajan, PT [facility] on PT [address] [place] [address] 09/07/2024 13:26:49 09/07/2024 14:41:24 Pain of right knee joint [id number] 08724 M25.286 [id number] Mackenzie Natarajan, PT [facility] on PT [address] [place] [address] 09/09/2024 12:00:42 09/09/2024 12:52:57 Pain of right knee joint [id number] 16448 M25.611 [id number] Tyra Patiño, [facility] on PT [address] [place] [address] 09/16/2024 13:00:40 09/16/2024 14:35:03 Pain of right knee joint [id number] 16585 M25.925 [id number] Mackenzie Natarajan, PT [facility] [place] on [address] [facility] [address] 09/21/2024 15:00:44 09/21/2024 16:02:25 Pain of right knee joint [id number] 24437 M25.202 [id number] Tyra Patiño, TIRE SERVICER [facility] [place] on [address] [facility] [place] [address] 09/23/2024 12:58:19 09/23/2024 14:32:55 Pain of right knee joint 4441087492 10826 M25.184 [id number] Tyra Patiño, TIRE SERVICER [facility] [place] on [address] [facility] [place] [address] 09/29/2024 14:04:34 09/29/2024 14:39:52 Pain of right knee joint [id number] 60152 M25.091 [id number] Tyra Patiño, TIRE SERVICER [facility] [place] on [address] [facility] [place] [address] 10/01/2024 13:58:44 10/01/2024 15:01:47 Pain of right knee joint [id number] 21035 M25.841 [id number] Mackenzie Natarajan, PT [facility] [place] on [address] [facility] [place] [address] 10/06/2024 14:32:55 10/06/2024 15:53:01 Pain of right knee joint [id number] 17608 M25.115 [id number] MD [facility] 2nd floor [address] [place] [address] 10/13/2024 13:41:57 10/19/2024 10:05:49 Osteoarthritis of right hip joint 4248803659 84559 M16.11 [id number] Tyra Patiño, TIRE SERVICER [facility] [place] on [address] [facility] [place] [address] 10/12/2024 13:06:37 10/12/2024 15:27:46 Pain of right knee joint 3036336144 52952 M25.172 [id number] Mackenzie Natarajan, PT [facility] [place] on [address] [facility] [place] [address] 10/14/2024 12:49:02 10/14/2024 14:52:51 Pain of right knee joint [id number] 58906 M25.367 [id number] Tyra Patiño, TIRE SERVICER [facility] [place] on [address] [facility] [place] [address] 10/27/2024 13:32:32 10/27/2024 15:20:44 Pain of right knee joint [id number] 16889 M25.168 [id number] Mackenzie Natarajan, PT [facility] [place] on [address] [facility] [place] [address] 11/04/2024 13:03:33 11/04/2024 15:19:21 Pain of right knee joint [id number] 28471 M25.414 [id number] Tyra Flynnf, TIRE SERVICER [facility] [place] on [address] [facility] [place] [address] 11/10/2024 13:06:03 11/10/2024 14:06:13 Pain of right knee joint [id number] 78354 M25.929 [id number] Tyra Patiño, TIRE SERVICER [facility] [place] on [address] [facility] [place] [address] 11/25/2024 12:59:07 11/25/2024 14:58:26 Pain of right knee joint 7265243400 45382 M25.777 [id number] Mackenzie Natarajan, PT [facility] [place] [address] [facility] [place] [address] 11/30/2024 12:57:35 11/30/2024 15:08:03 Pain of right knee joint [id number] 83280 M25.357 [id number] Tyra Flynnf, TIRE SERVICER [facility] [place] [address] [facility] [place] [address] 12/02/2024 12:57:10 12/02/2024 17:53:43 Pain of right knee joint [id number] 57768 M25.995 [id number] Tyra Patiño TIRE SERVICER [facility] [place] [facility] [address] [facility] [place] [address] 12/07/2024 12:33:20 12/07/2024 14:59:59 Pain of right knee joint [id number] 47672 M25.830 [id number] Tyra Patiño TIRE SERVICER [facility] [place] [address] [facility] [place] [address] 12/16/2024 12:31:23 12/16/2024 14:58:34 Pain of right knee joint [id number] 27044 M25.561 Health Concerns Section Related Observation LastModified by Organization Detai ls LastModified Time None Recorded Concern Status LastModified by Organization Details LastModified Time None Recorded Advance Directives Directive None Recorded Payers Insurance Date Sequence Insurance Name Policy Number Policy Hong Covered Member ID Hong Member ID Guarantor Name 12/13/2024 2 [place] [id number] Nina Rodriguez [id number] Nina Rodriguez 11/22/2024 1 [place] Nina Rodriguez [id number] Nina Rodriguez 10/18/2023 2 [place] Nina Rodriguez Notes Date Note Type Note Provider Name and Address Organization Details Recorded Time 11/25/2024 text/html Pt reports feeling pretty good today. She did some chores around the house prior to coming in today. Tyra Patiño, TIRE SERVICER [address], [place], [address], [facility] 11/25/2024 13:47:12 11/30/2024 text/html Pt reports she had been doing well, but on Saturday she bent down to pick something up off the floor & lost balance & ended up on her knees. Has had increased knee pain & R hip pain since then. Mackenzie Natarajan, PT [address], [place], [address], [facility] 11/30/2024 13:56:12 12/02/2024 text/html Pt report's feeling much better then last session. She is still a sore but significant improvement. She has been compliant with her HEP. Tyra Patiño, TIRE SERVICER [address], [place], [address], [facility] 12/02/2024 15:38:02 12/07/2024 text/html Pt report's doing well today but she has to cut her session short due to bringing her dog to vet. Tyra Patiño, TIRE SERVICER [address], [place], [address], [facility] 12/07/2024 13:48:46 12/16/2024 text/html Pt report's she is doing well today. She felt good after last session. Tyra Patiño TIRE SERVICER [address], [place], [address], [facility] 12/16/2024 17:26:10 OBGyn Episode No OBEpisode recorded.
--- OUTSIDE RECORDS SUMMARY | 2025-01-15 15:34 | XMS_ITS | Clinical Summary ---
Author Organization [facility], Address [address] [place] [address] [place] [address] Phone Care Team Providers Care Stock Parts Fabricator Name Role Phone Zhane Gamboa MD Primary Care Provider [phone]- [phone] Allergies Active Allergy Reactions Criticality Noted Date Comments Amoxicillin Swelling 08/26/2020 Swelling around the eyes Azithromycin Other (see comments) Medium 09/25/2019 Sucralfate 03/20/2018 Increased urination and hyponatremia Medications atenolol (TENORMIN) 50 MG tablet Take 1 tablet by mouth 2 (two) times a day Active atorvastatin (LIPITOR) 20 MG tablet Comments: Filled Date: Feb 21 2017 12:00AM Duration: 90 Active buPROPion SR (WELLBUTRIN SR) 200 MG 12 hr tablet Comments: Filled Date: Feb 26 2017 12:00AM Patient Notes: ( TO SOON 12/01)1 TABLET(S) 1 TIMES A DAY Duration: 11/27/2016 Active chlorhexidine (PERIDEX) 0.12 % solution Comments: Filled Date: Feb 06 2017 12:00AM Patient Notes: RINSE DIRECTED ON BOTTLE 2 TIMES DAILY DMD SAID Duration: 02/06/2017 Active LORazepam (ATIVAN) 0.5 MG tablet Comments: Filled Date: Jan 31 2017 12:00AM Patient Notes: TAKE 1 TABLET BY MOUTH 3 TIMES A DAY Duration: 01/29/2017 Active NIFEdipine XL (PROCARDIA XL) 30 MG 24 hr tablet Take 1 tablet by mouth 1 (one) time each day Active ondansetron (ZOFRAN) 4 MG tablet Comments: Filled Date: Jan 24 2017 12:00AM Patient Notes: TAKE 1 TABLET BY MOUTH EVERY 6 HOURS NEEDED FOR VOMITING/NAUS EA Duration: 01/23/2017 Active tiZANidine (ZANAFLEX) 2 MG tablet Comments: Filled Date: Jan 09 2017 12:00AM Patient Notes: TAKE 1 TABLET (2 MG TOTAL) BY MOUTH EVERY 8 (EIGHT) HOURS NEEDED. Duration: 01/09/2017 Active valproic acid (DEPAKENE) 250 MG capsule Comments: Filled Date: Mar 05 2017 12:00AM Patient Notes: TAKE 2 CAPSULES BY MOUTH NIGHTLY Duration: 01/10/2017 Active valsartan (DIOVAN) 320 MG tablet Comments: Filled Date: Feb 21 2017 12:00AM Duration: 90 Active cephalexin (Keflex) 250 MG capsule Take 1 capsule (250 mg total) by mouth in the morning and 1 capsule (250 mg total) in the evening and 1 capsule (250 mg total) before bedtime. 21 capsule 04/13/2023 Active Active Problems Problem Noted Date Diagnosed Date Type 2 diabetes mellitus without complication Prediabetes 08/26/2020 Overview (09/19/2020): Last Assessment & Plan: History of prediabetes mention by the patient. Will obtain a A1c, counseled patient about high-fiber high protein low-carb diet with accentuation on portion control. We will then reassess in 4 months on follow-up visit. Dyslipidemia 08/26/2020 Overview (09/19/2020): Last Assessment & Plan: Continue statin therapy with Lipitor and check lipids and AST ALT with a goal of LDL less than 100. Low-fat diet particularly saturated fats recommended Chronic kidney disease 07/17/2019 Hypertensive disorder 07/17/2019 Hyponatremia 07/17/2019 Anxiety 07/17/2019 Pure hypercholesterolemia 06/05/2018 Impaired fasting glycemia 04/15/2018 Encounters Date Type Department Care Team Description 01/08/2025 Orders Only [facility], [address] [place] [address] Anupam Martinez DO Hyponatremia; Hypertensive disorder 10/21/2024 1:45 PM EDT Office Visit [facility], [address] [place] [address] Anupam Martinez DO Hyponatremia (Primary Dx); Hypertensive disorder from Last 3 Months Immunizations Immunization Administration Dates Next Due Influenza Split High Dose Pr eservative Free IM 03/30/2020,03/05/2019,02/27/2018,04/18,03/13/2016,03/08/2015 Influenza, Unspecified 03/17/2021 Pfizer SARS-COV-2 04/06/2021,08/02/2020,07/12/19 21 Pneumococcal Conjugate 13-Valent 02/27/2018 Pneumococcal Polysaccharide 08/14/2013, 3 TD Preservative Free 04/07/2021 Family History Medical History Relation Comments Diabetes Father grandmother Gout Father Heart disease Father also grandfather Hypertension Father Grandfather/gran dmother Kidney disease Father CKD Stroke Father grandfather Diabetes Mother grandmother Hypertension Mother Hypertension Sibling 1 sister/brother Cancer Sibling 2 sister ovarian Relation Status Comments Father Unknown Mother Unknown Sibling 1 Sibling 2 Social History Tobacco Use Types Packs/Day Years Used Date Smoking Tobacco: Never Alcohol Use Standard Drinks/Week Comments No 0 (1 standard drink = 0.6 oz pur e alcohol) Comments Unknown Sex and Gender Information Value Date Recorded Sex Assigned at Not on file Legal Sex Female 4:34 PM EST Gender Identity Not on file Sexual Orientation Not on file Last Filed Vital Signs Vital Sign Reading Time Taken Comments Blood Pressure 132/84 10/16/2023 3:15 PM EDT Pulse 64 10/16/2023 3:15 PM EDT Temperature - - Respiratory Rate - - Oxygen Saturation - - Inhaled Oxygen Concentration - - Weight 65.8 kg (145 lb) 07/20/2019 1:36 PM EST Height 154.9 cm (5' 1 ) 04/13/2019 12:00 PM EDT Body Mass Index 27.4 04/13/2019 12:00 PM EDT Plan of Treatment Upcoming Encounters Date Type Department Care Team (Late st Contact Info) Description 04/23/2025 2:00 PM EDT Office Visit [facility], [address] [place] [address] Anupam Martinez, [address] [place] [address] Health Maintenance Due Date Last Done Comments Diabetes: Hemoglobin A1C 10/11/2021 Diabetes: Ophthalmology Exam 10/11/2021 Diabetes: Pedal Pulse Checked 10/11/2021 Diabetes: Sensory Foot Exam 10/11/2021 Diabetes: Visual Foot Exam 10/11/2021 Influenza Vaccine (#1) 2025 , 03/30/2020, 03/05/2019, Additional history exists Pneumococcal Vaccine: 50+ Years Completed 02/27/2018, 08/14/2013, 02/04/2013 Pneumococcal Vaccine: Peds (0 to 5 Years) and At-Risk Patients (6 to 49 Years) Discontinued 02/27/2018, 08/14/2013, 02/04/2013 Hepatitis B Vaccine Aged Out No longe r eligible based on patient's age to complete this topic Procedures Procedure Name Priority Date/Time Associated Diagnosis Comments RP10+2AC (HC) Routine 10/19/2024 11:04 AM EDT from Last 3 Months Results * (ABNORMAL) RP10+2AC (10/19/2024 11:04 AM EDT) Glucose 122(H) 70 - 99 mg/dL [facility] BUN 10 8 - 27 mg/dL [facility] Creatinine 0.92 0.57 - 1.00 mg/dL [facility] eGFR CKD-EPI CR 2020 63 >59 mL/min/1.7 3 [facility] BUN/Creatinine Ratio 11(L) 12 - 28 [facility] Sodium 136 134 - 144 mmol/L [facility] Potassium 4.6 3.5 - 5.2 mmol/L [facility] Chloride 101 96 - 106 mmol/L [facility] Bicarbonate (CO2) 18(L) 20 - 29 mmol/L [facility] Anion Gap 17.0 10.0 - 18.0 mmol/L [facility] Calcium 9.6 8.7 - 10.3 mg/dL [facility] Total Protein 6.6 6.0 - 8.5 g/dL [facility] Albumin 4.2 3.8 - 4.8 g/dL [facility] Globulin 2.4 1.5 - 4.5 g/dL [facility] Uric Acid 3.1 3.1 - 7.9 mg/dL [facility] Comment:Therapeutic target f or gout patients: <6.0 Phosphorus 3.0 3.0 - 4.3 mg/dL [facility] 10/19/2024 11:0 4 AM EDT 10/19/2024 us Anupam Martinez DO LAB [id number] LICITED RESULTS Final Result [facility] [address] [place] [address] from Last 3 Months Insurance Medicare [facility] Care Teams Stock Parts Fabricator Relationship Specialty Start Date End Date Zhane Gamboa MD [address] [place] [address] PCP - General Internal Medicine 11/20/23
--- OUTSIDE RECORDS SUMMARY | 2025-01-15 15:34 | XMS_ITS | Encounter Summary ---
Author Organization [facility] Address [address] [place] [address] Phone Care Team Providers Care Telegraph Office Route Aide Name Role Phone Alex Smith DO Primary Care Provider [phone] Rhona Cook DO Primary Care Provider [phone]- [phone] Abdias Washington MD Primary Care Provider [phone] Abdias Washington MD Unavailable Reason for Referral * Physical Therapy (Routine) - Closed Specialty Diagnoses / Procedures Referred By Olga laird Referred To Contact Physical Therapy Diagnoses Encounter for rehabilitation System, Provider Not In, [facility] [id number] [place] [address] Phone: tel: Referral ID Status Reason Start Date Expiration Date Visits Re quested Visits Authorized [id number] Closed 02/14/2018 06/23/[phone] Encounter Details Date Type Department Care Team (Latest Contact Info) Description 02/14/2018 Transcribe Orders [facility] [address] [place] [address] Ana Luisa Ruiz, AIRCRAFT INSTRUMENT TESTER [address] [place] [address] Encounter for rehabilitation (Primary Dx) Social History Tobacco Use Types Packs/Day Years Used Date Smoking Tobacco: Never Smokeless Tobacco: Never Alcohol Use Standard Drinks/Week Comments No 0 (1 standard drink = 0.6 oz pur e alcohol) Comments Unknown Sex and Gender Information Value Date Recorded Sex Assigned at Female 12/19/2021 11:03 AM EDT Legal Sex Female 7:19 PM EST Gender Identity Female 12/19/2021 11:03 AM EDT Sexual Orientation Straight 12/19/2021 11 :03 AM EDT documented as of this encounter Plan of Treatment Upcoming Encounters Date Type Department Care Team (Late st Contact Info) Description 07/14/2025 11:00 AM EST Office Visit [facility] Internal Medicine [address] [place] [address] Abdias Washington MD [address] [place] [address] 12/07/2025 11:00 AM EDT Telemedicine [facility] Neurology at [address] [address] Matthew Avalos MD [address] [place] [address] [email or web address] documented as of this encounter Procedures Procedure Name Priority Date/Time Associated Diagnosis Comments AMB REFERRAL TO [facility] PHYSICAL THERAPY Routine 03/17/2018 4:30 PM EDT Encounter for rehabilitation documented in this encounter Results * Ambulatory referral to [facility] Physical Therapy (03/17/2018 4:30 PM EDT) us Provider Not In System PhD AMB [facility] REFERRALS Fin al Result documented in this encounter Visit Diagnoses Diagnosis Encounter for rehabilitation- Primary documented in this encounter Additional Health Concerns Infection Onset Date Last Indicated Resolved Time CoV-Risk 02/13/2021 02/14/2021 02/23/2021 1:23 AM EDT documented as of this encounter Care Teams Telegraph Office Route Aide Relationship Specialty Start Date End Date Alex Smith DO [address] [place] [address] PCP - General 12/22/13 05/04/18 Rhona Cook DO [address] [place] [address] PCP - General 05/05/18 08/25/20 Abdias Washington MD [address] [place] [address] PCP - General Internal Medicine 08/26/20 Abdias Washington MD [address] [place] [address] [email or web address] Insurance Assigned Provider 09/28/23 06/29/24 documented as of this encounter Additional Source Comments The information contained in this document represents components of the legal health record. It is not the complete legal health record.[facility]
--- OUTSIDE RECORDS SUMMARY | 2025-01-15 15:34 | XMS_ITS | Clinical Summary ---
Author Organization [facility] it Address [address] [place] [address] Care Team Providers Care Residential Monitor Name Role Phone Rhona Cook DO Primary Care Provider + Surgical History Surgery Date Site/Laterality Comments SECTION 1978 PROCEDURE: SECTION Medical History Medical History Date Comments Arthritis DX:Arthritis Cataract DX:Cataract Headache DX:Headache Infectious viral hepatitis DX:In fectious viral hepatitis HL (hearing loss) DX:HL (hearing loss) Low back pain DX:Low back pain Anxiety DX:Anxiety Hypertension DX:Hypertension GERD (gastroesophageal reflux disease) DX:GERD (gastroesophageal reflux disease);COMMENT:09/2017 Impedence study/gastric emptying study: H Hernia, + acid and nonacid reflux, delayed emptying of gastric and ineffective esophageal motility. Dr Liriano SI (sacroiliac) joint dysfunction 02/11/2018 DX:SI (sacroiliac) joint dysfunction Hyponatremia 12/2019 DX:Hyponatremia Palpitations 06/2018 DX:Palpitations; COMMENT:Echo: EF 55-65% Holter: NSR no A Fib, rare atrial ectopy with some isolated PACs and short runs of SVT, Mibi: Stress test 2013 [facility] neg PSVT (paroxysmal supraventri cular tachycardia) (CMS/HCC V24) DX:PSVT (paroxysmal suprave ntricular tachycardia) (HCC);COMMENT:Holter: PACs and short runs of SVT, 07/2018 CT Coronary: Minimal evidence of coronary atherosclerotic disease Screening for osteoporosis DX:Sc reening for osteoporosis;COMMENT:DXA: 05/2019: Osteoporosis T-2.6 Hip ( 6.3% decrease) FRAX: 17.3/5.7% Screening for breast cancer DX:S creening for breast cancer;COMMENT:Mammo: 05/2019 beign Vitamin D deficiency DX:Vitamin D deficiency;COMMENT:06/2019 Family History Relation Name Status Comments Maternal Grandfather Maternal Grandmother Paternal Grandfather Paternal Grandmother Social History Tobacco Use Types Packs/Day Years Used Date Smoking Tobacco: Never Smokeless Tobacco: Never Alcohol Use Standard Drinks/Week Comments No 0 (1 standard drink = 0.6 oz pur e alcohol) Comments Unknown Sex and Gender Information Value Date Recorded Sex Assigned at Not on file Legal Sex Female 12:26 AM EST Gender Identity Not on file Sexual Orientation Not on file Obstetrics History Plan of Treatment Health Maintenance Due Date Last Done Comments DTaP,Tdap,and Td Vaccines (1 - Tdap) 01/18/1963 Zoster Vaccines (1 of 2) 01/18/1994 RSV Immunization Adult Patients (1 - 1-dose 75+ series) 01/18/2019 Pneumococcal Vaccine: 50+ Years (2 of 2 - PPSV23) 02/27/2019 02/27/2018 COVID-19 Vaccine (1 - 2023- season) 2024 Depression Screening 06/24/2024 Influenza Vaccine (#1) 2025 , 03/30/2020, 03/05/2019, Additional history exists HIB Vaccines Aged Out No longer eligi ble based on patient's age to complete this topic HPV Vaccines Aged Out No longer eligi ble based on patient's age to complete this topic Hepatitis A Vaccines Aged Out No long er eligible based on patient's age to complete this topic Hepatitis B Vaccines Aged Out No long er eligible based on patient's age to complete this topic IPV Vaccines Aged Out No longer eligi ble based on patient's age to complete this topic MMR Vaccines Aged Out No longer eligi ble based on patient's age to complete this topic Meningococcal ACWY Vaccine Aged Out N o longer eligible based on patient's age to complete this topic Meningococcal B Vaccine Aged Out No l onger eligible based on patient's age to complete this topic RSV Immunization Patients Under 20 months Aged Out No longer eligible based on patient's age to complete this topic Varicella Vaccines Aged Out No longer eligible based on patient's age to complete this topic Care Teams Residential Monitor Relationship Specialty Start Date End Date Rhona Cook DO [address] [facility] [address] [place] [address] PCP - General Family Medicine 02/27/18
--- OUTSIDE RECORDS SUMMARY | 2025-01-15 15:34 | XMS_ITS | Patient Health Record ---
Author Organization [facility] Address [address] [place] [address] Care Team Providers Care Space Operations Officer Name Role Phone Abdias Washington MD Primary Care Provider Roz Han Unavailable [phone] Allergies Allergen (clinical drug ingredient) Drug/Non Drug Allergy documented on EMR Reaction Allergy Type Onset Date Status amoxicillin / clavulanate Augmentin severe diarrhea, dehydration Drug Allergy Active diphenhydramine Benadryl heart races Drug Allergy Active amoxicillin Amoxicillin eye swells Drug Allergy Ac tive Results Component Value Reference Range Notes HEMOGLOBIN A1C (GLYCOHEMOGLO BIN) Reviewed date:01/08/2025 11:03:19 AM Interpretation: Performing Lab: Notes/Report: HEMOGLOBIN A1C % (HH) 6.0 Reason For Referral No Information Medications Medication SIG (Take, Route, Frequency, Duration) Notes Start Date End Date Status Cephalexin 500 MG 1 capsule Orally every 12 hrs; Duration: 7 days Not-Taking Diovan 320 MG Orally Active zzzCompression Stockings 20-30mm Hg . . .; Duration: . Not-Takin g NexIUM 40 MG 1 capsule Orally Once a day Active buPROPion HCl ER (SR) Not-Taking Extra Depth Orthopedic Shoes (1 Pair) with Customized Heat Molded Multidensity Innersoles (3 Pair) as directed Dx: NIDDM (E11.9), Hammertoe Foot Deformity (M20.41,M20.42), Preulcerative Skin Lesion(s) (L85.1) 09/22/2024 Active Simvastatin 40 MG 1 tablet in the evening Orally Once a day Not-Taking Mupirocin Active Ciclopirox Olamine 0.77 % APPLY 1 APPLIC ATION EXTERNALLY TWICE A DAY 30 DAYS; Duration: 30 Active hydroCHLOROthiazide 25 MG 1 tablet Orall y Once a day Not-Taking Atorvastatin Calcium 20 MG Orally Active Baclofen Not-Taking tiZANidine HCl 2 MG Orally prn Active CeleXA 20 MG 1 tablet Orally Once a day Not-Taking LORazepam 0.5 MG Orally three times a day Active dilTIAZem HCl ER 180 MG 1 capsule on an empty stomach in the morning Orally Once a day Not-Taking Wellbutrin SR 200 MG 1 tablet Orally Twice a day Active Nortriptyline HCl 10 MG Orally Once a day Not-Taking Reglan prn Active LORazepam Active Atenolol 50 MG 1 tablet Orally twice a day Active Spironolactone Not-T aking NIFEdipine 20 MG 3 capsules as needed 60mg am/60mg pm Orally Once daily 60mg Active Doxycycline Hyclate 100 MG 1 capsule Orally Twice a day take X 10d Not-Taking Immunizations Vaccine Route Administration Date Status Comme nts Influenza Unknown 03/23/2023 Administered Influenza Unknown 03/31/2024 Administered COVID-19 Pfizer BioNTech Vaccine Unknown 07/12/2020 Administered Second Dose: 08/02/2020 Social History Tobacco Use: Social History Observation Description Date Details (start date - stop date) Never Smoker NA - NA Tobacco use other than smoking: Question Answer Notes Are you an other tobacco user? No Tobacco Control (Standard) Question Answer Notes Tobacco use: Nonsmoker Additional Findings: Tobacco non-user Current no nsmoker AUDIT-C (Standard) Question Answer Notes Did you have a drink containing alcohol in the p ast year? No Points 0 Interpretation Negative Problems Problem Type SNOMED Code ICD Code Onset Dates Problem Status W/U Status Risk Notes Problem Type II diabetes mellitus without complication (097235448) Diet-controlled diabetes mellitus (E11.9) Active confirmed Problem Bilateral atherosclerosis of arteries of lower limbs (disorder) (43978095900772267 ) Atherosclerosis of [place] artery of both lower extremities, with unspecified presence of clinical manifestation (I70.203) Active confirmed Q7(A), Q8(2B), Q9(1B,2 C) Vital Signs Blood pressure diastolic 70 mm Hg 01/08/2025 Height 4ft 11in in 01/08/2025 Blood pressure systolic 128 mm Hg 01/08/2025 Weight 145 lbs 01/08/2025 BMI 29.28 kg/m2 01/08/2025 Procedures Procedure Date Ordered Date Performed Result Body Sit e 24314-QTBBUVF NAIL, 6 OR MORE 03/06/2024 N/A 26343-WZHXTUA NAIL, 6 OR MORE 06/05/2024 N/A 40077-ECZU SKIN LESIONS, OVER 4 06/05/2024 N/A 39025-VHHSEZC NAIL, 6 OR MORE 09/22/2024 N/A 89652-VOOL SKIN LESIONS, OVER 4 09/22/2024 N/A 07726-SARFKKX NAIL, 6 OR MORE 01/08/2025 N/A 97657-AUOB SKIN LESIONS, OVER 4 01/08/2025 N/A Encounters Encounter Location Date Provider Diagnosis [address] [address] 03/06/2024 Roz Black Diet-controlled diab etes mellitus E11.9 ; Tinea pedis of both feet B35.3 ; Tinea unguium B35.1 ; Pain in right toe(s) M79.674 and Pain in left toe(s) M79.[address] [address] 06/05/2024 Roz Griggs Diet-controlled diab etes mellitus E11.9 ; Tinea unguium B35.1 ; Pain in right toe(s) M79.674 ; Pain in left toe(s) M79.675 and Atherosclerosis of [place] artery of both lower extremities, with unspecified presence of clinical manifestation I70.[address] [address] 09/22/2024 Roz Black Atherosclerosis of [place] artery of both lower extremities, with unspecified presence of clinical manifestation I70.203 ; Other hammer toe(s) (acquired), right foot M20.41 ; Diet-controlled diabetes mellitus E11.9 ; Tinea unguium B35.1 ; Pain in right toe(s) M79.674 ; Pain in left toe(s) M79.675 and Other hammer toe(s) (acquired), left foot M20.[address] [address] 01/08/2025 Roz Black Atherosclerosis of [place] artery of both lower extremities, with unspecified presence of clinical manifestation I70.203 ; Diet-controlled diabetes mellitus E11.9 ; Tinea unguium B35.1 ; Pain in right toe(s) M79.674 and Pain in left toe(s) M79.675 Assessments Encounter Date Diagnosis (ICD Code) Assessment Notes Treatment Notes Treatment Clinical Notes Section Notes 03/06/2024 Diet-controlled diabetes mellitus (ICD-10 - E11.9) 03/06/2024 Tinea pedis of both feet (ICD-10 - B35.3) Response to treatment - Improvement 06/05/2024 Diet-controlled diabetes mellitus (ICD-10 - E11.9) 09/22/2024 Other hammer toe(s) (acquired), right foot (ICD-10 - M20.41) Patient Educated with: DIABETIC FOOT CARE INSTRUCTIONS. pdf (DIABETIC FOOT CARE INSTRUCTIONS. pdf) 09/22/2024 Atherosclerosis of [place] artery of both lower extremities, with unspecified presence of clinical manifestation (ICD-10 - I70.203) Q7(A), Q8(2B), Q9(1B,2C) 01/08/2025 Diet-controlled diabetes mellitus (ICD-10 - E11.9) 01/08/2025 Atherosclerosis of [place] artery of both lower extremities, with unspecified presence of clinical manifestation (ICD-10 - I70.203) Q7(A), Q8(2B), Q9(1B,2C) 09/22/2024 Diet-controlled diabetes mellitus (ICD-10 - E11.9) 01/08/2025 Tinea unguium (ICD-10 - B35.1) 06/05/2024 Tinea unguium (ICD-10 - B35.1) 03/06/2024 Tinea unguium (ICD-10 - B35.1) 03/06/2024 Pain in right toe(s) (ICD-10 - M79.674) 06/05/2024 Pain in right toe(s) (ICD-10 - M79.674) 09/22/2024 Tinea unguium (ICD-10 - B35.1) 01/08/2025 Pain in right toe(s) (ICD-10 - M79.674) 01/08/2025 Pain in left toe(s) (ICD-10 - M79.675) 09/22/2024 Pain in right toe(s) (ICD-10 - M79.674) 06/05/2024 Pain in left toe(s) (ICD-10 - M79.675) 03/06/2024 Pain in left toe(s) (ICD-10 - M79.675) 09/22/2024 Pain in left toe(s) (ICD-10 - M79.675) 06/05/2024 Atherosclerosis of [place] artery of both lower extremities, with unspecified presence of clinical manifestation (ICD-10 - I70.203) Q7(A), Q8(2B), Q9(1B,2C) 09/22/2024 Other hammer toe(s) (acquired), left foot (ICD-10 - M20.42) 01/08/2025 Other Plan Of Treatment Pending Test Test Name Order Date X ray : Foot, right 3V 06/12/2016 26389-VDZIWGD NAIL, 6 OR MORE 07/02/2016 09933-WVLQTFR NAIL, 6 OR MORE 07/23/2016 89362-XHZBPIP NAIL, 6 OR MORE 10/01/2016 81579-CIRTOEB NAIL, 6 OR MORE 01/07/2017 41847-EVMWFCN NAIL, 6 OR MORE 04/08/2017 30373-XTWGKQP NAIL, 6 OR MORE 03/16/2015 89388-HTCPOZY NAIL, 6 OR MORE 06/29/2015 68677-WLRRWEX NAIL, 6 OR MORE 09/28/2015 62375-SITKZCT NAIL, 6 OR MORE 01/02/2016 29819-TSGJAPR NAIL, 6 OR MORE 04/05/2016 79574-FIPOFIB NAIL, 6 OR MORE 04/12/2014 57234-VPEOFCU NAIL, 6 OR MORE 07/14/2014 55325-MMQYRVP NAIL, 6 OR MORE 09/22/2014 85111-ZIQIGLO NAIL, 6 OR MORE 07/18/2017 99400-RASHXQX NAIL, 6 OR MORE 10/16/2017 26669-YQUCUTZ NAIL, 6 OR MORE 01/13/2018 88924-CLCDLLZ NAIL, 6 OR MORE 04/14/2018 06609-KGWGXZS NAIL, 6 OR MORE 07/24/2018 32763-NYVVOHC NAIL, 6 OR MORE 10/27/2018 42842-WZXDQPA NAIL, 6 OR MORE 01/26/2019 31805-SVTCCHG NAIL, 6 OR MORE 04/27/2019 20271-KKLCEZN NAIL, 6 OR MORE 09/15/2021 71803-ICRPVJP NAIL, 6 OR MORE 12/15/2021 68124-UQCTIOO NAIL, 6 OR MORE 03/09/2022 43183-KHGFMQO NAIL, 6 OR MORE 06/08/2022 59821-IGUYJCQ NAIL, 6 OR MORE 09/21/2022 49209-MXTPPXB NAIL, 6 OR MORE 12/21/2022 88233-KPSYEYZ NAIL, 6 OR MORE 03/22/2023 19966-SJTCKPR NAIL, 6 OR MORE 06/26/2023 89513-XDIXIYB NAIL, 6 OR MORE 08/30/2023 70921-ICWKJNX NAIL, 6 OR MORE 03/06/2024 84809-NNKAPVR NAIL, 6 OR MORE 08/03/2019 22114-BOELEYO NAIL, 6 OR MORE 02/01/2020 44952-CRTNCLZ NAIL, 6 OR MORE 08/19/2020 30768-OQUYSYW NAIL, 6 OR MORE 01/02/2021 82657-OPJYQTY NAIL, 6 OR MORE 04/07/2021 38322-ODJVLOH NAIL, 6 OR MORE 12/16/2014 47655-EBKNLLP NAIL, 6 OR MORE 06/05/2024 12241-MIGLRPW NAIL, 6 OR MORE 09/22/2024 67764-IENIIEO NAIL, 6 OR MORE 01/08/2025 11413-Cjvxgqht Plate 03/16/2015 10999-Kkskeuyn Plate 09/15/2021 29898-Ttejxltf Plate 09/22/2014 79422-Spphmxmc Plate 12/16/2014 50227-Frmnapkw Plate 04/12/2014 99894-Miilkpkc Plate 07/14/2014 62015-Njltggab Plate Each Additional 76389-Bjpmgtif Plate Each Additional 76326-Jhvxnfrn Plate Each Additional 12643- Debride <25 sq cm 04/08/2017 53479 I&D ABSCESS- SIMPLE,SINGLE 016 10021 I&D ABSCESS- SIMPLE,SINGLE 12/12/2 016 74237-GVGN SKIN LESIONS, OVER 4 06/05/20 24 52030-KHUS SKIN LESIONS, OVER 4 04/27/20 19 56162-OWLC SKIN LESIONS, OVER 4 08/03/19 20 65714-YICE SKIN LESIONS, OVER 4 09/23/19 25 10509-BOVK SKIN LESIONS, OVER 4 01/09/20 Next Appt Details Provider Name:Roz Griggs , 04/09/2025 12:30:00 PM, [address] [facility], [place], [address], Insurance Providers Payer Name Payer Address Payer Phone Subscriber Number Group Number Insured Name Patient Relationship to Insured Coverage Start Date Coverage End Date Medicare National Govt [employer] [address] [place] [address] [id number] Nina Rodriguez Self - patient is the insured 9 [employer] Blue [employer] [address] [place] [address] [id number] Nina Rodriguez Self - patient is the insured Medical (General) History Medical History History ICD Code Anxiety disorder Headaches High blood pressure Reflux Measles Mumps Chicken pox Pre-diabetic Other hammer toe(s) (acquired), left lexx t M20.42 Other hammer toe(s) (acquired), right fo ot M20.41 Surgical History Surgery Date(Month/Year) 08/27/1978 cataracts 08/2018, 09/2018 Total hip replacement 09/14
[2025-01-15 15:58] VITALS: BP 152/70; PULSE 76; TEMP 36.8; O2SAT 97; BMI 30.5
--- NOTE | 2025-01-15 15:58 | MHC.OFFWIV ---
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 Patient denies any injury or trauma preceding the onset of her symptoms and she describes it as an achy sensation that does not worsen with ambulation. Patient denies any radiation of her pain. She was seen at urgent care through [facility] and was told that she needed an ultrasound to rule out a blood clot. Patient denies having any chest pain, cough, hemoptysis or shortness for breath and is not currently taking any blood thinning medications. [facility] Medical History (Updated 01/15/25 @ 16:15 by Gretta Palm PA-C) Cholelithiasis Migraine Generalized anxiety disorder Impaired fasting glucose Hyperlipidemia Essential hypertension Acute epigastric pain Chronic GERD Surgical History (Updated 02/22/23 @ 11:26 by Laura Gamboa MD) Hx of section Hx of cataract surgery Social History Housing: House Patient Tobacco Use Status: Never used Tobacco e-Cigarette/Vaping Use: Never Used service: No Current occupational status: retired Cognitive needs: No Hearing needs: No Vision needs: No Review of Systems Const All systems reviewed & are unremarkable except as noted in HPI and below Card Reports no additional complaints, Denies chest pain, Denies chest pain with activity, Denies pedal edema, Denies leg edema and Denies dyspnea Resp Denies chest congestion, Denies cough and Denies dyspnea Musc Details: Posterior left knee pain Skin/Breast Reports system reviewed and no additional complaints, except as documented Simon/Lymph Reports no additional complaints Aller/Immun Reports no additional complaints Physical Exam Vital Signs: Last Vital Signs Temp 98.2 F 01/15/25 15:58 Pulse 76 01/15/25 15:58 BP 152/70 H 01/15/25 15:58 Pulse Ox 97 01/15/25 15:58 Oxygen Delivery Method Room Air 01/15/25 15:58 BMI result Body Mass Index 30.5 Const General: cooperative, healthy appearing, comfortable, well developed, alert, awake and Physically active Nutritional Appearance: well nourished Orientation/consciousness: patient oriented x3 Limitations: no limitations Resp Effort & Inspection: normal respiratory effort, able to speak in complete sentences, no audible wheezes, no respiratory distress, no stridor and not tachypneic Auscultation: clear to auscultation bilaterally Cardio Rate: regular rate Rhythm: regular rhythm Skin Other: There is no erythema, edema or warmth to touch upon examination of the left knee or distal left lower extremity. General skin exam: no rashes or lesions noted Neuro General: patient oriented x3 Extrem Other: No left calf tenderness, passive ROM left knee intact, no lesions palpated in the posterior fossa of the left knee the patient is ambulating independently. Psych Appearance: grossly normal Mental Status: mental status grossly normal Insight: Good insight present (Psych) Judgement: Good judgement present (Psych) Assessment & Plan Assessment & Plan (1) Posterior left knee pain: Comment: Patient is in no acute distress. Ultrasound imaging will be obtained to rule out acute DVT versus Cortés cyst. Code(s): M25.562 - Pain in left knee Plan: Ultrasound is ongoing at this time. Patient was told that official read may not be available until January 16. Patient is instructed to use Tylenol or ibuprofen for discomfort as needed. Orders: Orders US venous duplex LE LT Today M25.562 - Pain in left knee Coding Level of Care Code Est Pt Level 3 (23883) Diagnoses Posterior left knee pain M25.562 Time Spent (min) 20
== END 2025-01-15 16:47 | disposition home or self-care (01) ==
PROVIDERS: PCP Internal Medicine; Visit Provider Physician Assistant
DX: M25.562 Pain in left knee (principal)

== ENCOUNTER 2025-01-15 16:12 | Outpatient (REF) | payer MEDICARE, SELFPAY ==
--- NOTE | ~2025-01-15 | US_ITS ---
EXAMINATION: US TRIPLEX LOWER EXTREMITY, LEFT CLINICAL INFORMATION: Left knee pain COMPARISON: None available. TECHNIQUE: Color-flow triplex imaging with spectral analysis and compression Doppler were performed on the left lower extremity. FINDINGS: Respiratory variation, normal compression and augmented flow are noted throughout the left lower extremity. The visualized common femoral vein, superficial femoral vein, profunda femoral vein, popliteal vein and midcalf peroneal and posterior tibial venous segments show no evidence of deep venous thrombosis. US/US venous duplex LE LT IMPRESSION: No evidence of deep venous thrombosis involving the left lower extremity. Electronically signed by: Jim Lomeli MD 01/15/2025 04:28 PM EDT
== END 2025-01-15 16:13 | disposition home or self-care (01) ==
LOC: HO.HMGCX 16:12
PROVIDERS: PCP Internal Medicine; Visit Provider Physician Assistant
DX: M25.562 Pain in left knee (principal)
CPT/HCPCS: 93971; 99212

== ENCOUNTER → 2025-01-15 16:14 | Outpatient (BNV) | payer MEDICARE, SELFPAY | PROVIDERS: PCP Internal Medicine; Visit Provider Radiology Diagnostic Radiology | DX: M79.605 Pain in left leg (principal) | CPT/HCPCS: 93971 ==